=== PATIENT | male | born 1970 | race African-American/Black ===

== ENCOUNTER 2018-07-07 | Emergency (ER) | payer OTHER ==
[~2018-07-07] VITALS: Ht 188 cm; Wt 81.6 kg
[2018-07-07] MEDS ORDERED: KETOROLAC TROMETHAMINE 30 MG INJ IM ONE (00:45)
[2018-07-07] MEDS ORDERED: KETOROLAC TROMETHAMINE 30 MG INJ ONE (00:53)
--- NOTE | 2018-07-07 01:29 | NUR ---
Patient discharged to home in stable conditon. Written and verbal after care instructions given. Patient verbalizes understanding of instructions. Pt left ER in stable gait. No acute distress noted.
[2018-07-07 01:31] VITALS: BP 112/72
== END 2018-07-07 01:34 | disposition home or self-care (01) ==
LOC: ER 00:03
DX: M54.5 Low back pain (principal); M54.6 Pain in thoracic spine; F17.290 Nicotine dependence, other tobacco product, uncomplicated; V47.5XXA Car driver injured in collision with fixed or stationary object in traffic accident, initial encounter; Y93.89 Activity, other specified; Y92.89 Other specified places as the place of occurrence of the external cause; Y99.8 Other external cause status
CPT/HCPCS: 72100; 96372; 99283; 99406; J1885; A4663